=== PATIENT | male | born 1985 | race American Indian/Alaskan Native ===

== ENCOUNTER 2022-05-08 18:48 | Emergency (ER) | payer MEDICAID, OTHER ==
[2022-05-08] MEDS ORDERED: Naloxone 2 MG/2 ML Syringe ONE (19:07)
[2022-05-08] MEDS ORDERED: Naloxone 2 MG/2 ML Syringe IVPUSH ONE (19:08)
[2022-05-08 20:37] LABS: METHAMPHETAMINES,URINE POSITIVE (NEGATIVE)
[2022-05-08 20:38] LABS: AMPHETAMINES,URINE POSITIVE (NEGATIVE); BARBITURATES,URINE NEGATIVE (NEGATIVE); BENZODIAZEPINE,URINE NEGATIVE (NEGATIVE); MDMA (ECSTASY), URINE NEGATIVE (NEGATIVE); METHADONE,URINE NEGATIVE (NEGATIVE); OPIATES,URINE NEGATIVE (NEGATIVE); OXYCODONE,URINE NEGATIVE (NEGATIVE); PHENCYCLIDINE,URINE NEGATIVE (NEGATIVE); TCA,URINE NEGATIVE (NEGATIVE)
[2022-05-08 20:40] VITALS: BP 139/100; PULSE 110
[2022-05-08 21:21] LABS: ANION GAP 14.2 mEq/L (7-13); CHLORIDE,CL 106 mmol/L (98-107); SODIUM,NA 141 mmol/L (136-145)
[2022-05-08 21:23] LABS: ACETAMINOPHEN 0 ug/mL (10-30 (Therapeutic)); ESTIMATED GFR 92 mL/min (>=60)
== END 2022-05-09 00:54 | disposition home or self-care (01) ==
LOC: DL.ED 18:48
DX: T67.5XXA Heat exhaustion, unspecified, initial encounter (principal); F15.90 Other stimulant use, unspecified, uncomplicated
CPT/HCPCS: 36415; 80053; 80143; 80305; 80307; 81003; 82140; 82150; 83605; 83690; 83735; 84484; 85025; 93005; 96374; 99285; J2310

== ENCOUNTER 2023-01-10 14:41 | Emergency (ER) | payer MEDICAID ==
[2023-01-10] MEDS: Sodium Chloride 0.9% 10 ML Syringe FLUSH PRN ×2 (15:00→15:54)
[2023-01-10 15:33] LABS: ANION GAP 13.5 mEq/L (7-13); CHLORIDE,CL 99 mmol/L (98-107); PTT,PARTIAL THROMBOPLSTIN TIME 26.1 SEC (22.0-34.0); SODIUM,NA 135 mmol/L (136-145)
[2023-01-10 15:34] LABS: ESTIMATED GFR 102 mL/min (>=60)
[2023-01-10] MEDS ORDERED: Iopamidol 612 MG/ML 100 ML Bottle IVPUSH ONE (15:45)
[2023-01-10] MEDS ORDERED: Sodium Chloride 0.9% 1,000 ML IV ONE (15:46)
[2023-01-10 16:38] VITALS: BP 167/107; PULSE 89
[2023-01-10 18:25] LABS: AMPHETAMINES,URINE NEGATIVE (NEGATIVE); BARBITURATES,URINE NEGATIVE (NEGATIVE); BENZODIAZEPINE,URINE NEGATIVE (NEGATIVE); MDMA (ECSTASY), URINE NEGATIVE (NEGATIVE); METHADONE,URINE NEGATIVE (NEGATIVE); METHAMPHETAMINES,URINE POSITIVE (NEGATIVE); OPIATES,URINE NEGATIVE (NEGATIVE); OXYCODONE,URINE NEGATIVE (NEGATIVE); PHENCYCLIDINE,URINE NEGATIVE (NEGATIVE); TCA,URINE NEGATIVE (NEGATIVE)
== END 2023-01-10 18:09 ==
LOC: DL.ED 14:41
DX: L03.113 Cellulitis of right upper limb (principal); L02.413 Cutaneous abscess of right upper limb; Z86.16 Personal history of COVID-19; Z72.0 Tobacco use
CPT/HCPCS: 36415; 73201; 80053; 80305-QW; 80307; 83605; 85025; 85610; 85730; 86140; 87040; 96361; 96365; 99285-25; J3370; J3490; J7030; J7040; Q9967

== ENCOUNTER 2025-09-24 15:20 | Emergency (ER) | payer MEDICAID ==
[~2025-09-24 15:20] MED LIST: Sodium Chloride 0.9% 10 ML Syringe FLUSH PRN
[2025-09-24 15:29] LABS: BASOPHILS PERCENT AUTO 0.0 % (0.0-1.0); EOSINOPHILS PERCENT AUTO 0.0 % (1.0-3.0); LYMPHOCYTES PERCENT AUTO 14.7 % (20.5-50.1); MONOCYTES PERCENT AUTO 4.7 % (2-8); NEUTROPHILS PERCENT AUTO 80.6 % (42.2-75.2); PLATELET COUNT,PLT 226 10^3/uL (150-450); RED BLOOD CELL COUNT 5.27 10^6/uL (4.6-6.2); WHITE BLOOD CELL COUNT,WBC 5.5 10^3/uL (5.0-10.0)
[2025-09-24 15:50] LABS: A/G RATIO 0.8; ALANINE AMINOTRANSFERASE,ALT 77.0 U/L (16-63); ASPARTATE AMNIOTRANSFERASE,AST 31.0 U/L (15-37); BILIRUBIN TOTAL 1.2 mg/dL (0.2-1.0); BLOOD UREA NITROGEN,BUN 8.0 mg/dL (7-18); CARBON DIOXIDE,CO2 25.0 mmol/L (21-32); CHLORIDE,CL 100.0 mmol/L (98-107); CREATININE 1.1 mg/dL (0.70-1.30); EST CRCL DRUG DOSING (CG) 93.17 mL/min; GLUCOSE RANDOM 112.0 mg/dL (70-99); POTASSIUM,K 3.5 mmol/L (3.5-5.1); PROTEIN TOTAL,TP 9.2 g/dL (6.4-8.2); SODIUM,NA 137.0 mmol/L (136-145)
[2025-09-24 15:51] LABS: ESTIMATED GFR 86.0 mL/min (>=60)
[2025-09-24 15:53] LABS: LACTIC ACID 1.3 mmol/L (0.4-2.0)
[2025-09-24] MEDS: GI Cocktail Oral Solution 30 ML PO ONE (16:17)
[2025-09-24] MEDS: Ondansetron 4 MG/2 ML SDV IVPUSH ONE (16:17)
[2025-09-24] MEDS: Iopamidol 612 MG/ML 100 ML Bottle IVPUSH ONE (16:25)
[2025-09-24 18:15] VITALS: BP 165/103; PULSE 69
== END 2025-09-24 18:02 | disposition home or self-care (01) ==
LOC: DL.ED 15:20
DX: K21.9 Gastro-esophageal reflux disease without esophagitis (principal)
CPT/HCPCS: 36415; 74177; 80053; 83605; 83690; 83735; 85025; 96374; 99285; A9270; J2405; Q9967